=== PATIENT | male | born 2000 | race Two or more races ===

== ENCOUNTER 2022-12-22 01:25 | Emergency (ER) | payer OTHER ==
[~2022-12-22] VITALS: Ht 190.5 cm; Wt 91.0 kg
[2022-12-22 01:50] VITALS: BP 118/53; PULSE 83; RESP 18; O2SAT 97
[2022-12-22] MEDS ORDERED: FLUT1SPR5 (04:08)
[2022-12-22] MEDS ORDERED: AMOX500T3 PO (04:08)
== END 2022-12-22 07:25 | disposition home or self-care (01) ==
LOC: ER 01:25
DX: S00.03XA Contusion of scalp, initial encounter (principal); J32.9 Chronic sinusitis, unspecified; W22.8XXA Striking against or struck by other objects, initial encounter; Y93.89 Activity, other specified; Y92.89 Other specified places as the place of occurrence of the external cause; Y99.8 Other external cause status
CPT/HCPCS: 70450

== ENCOUNTER 2024-08-16 02:32 | Emergency (ER) | payer OTHER, MEDICAID ==
[~2024-08-16] VITALS: Ht 190.5 cm; Wt 102.2 kg
[~2024-08-16 02:32] MED LIST: AMOX500T3 PO; FLUT1SPR5
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
[2024-08-16 04:36] VITALS: BP 113/67; PULSE 89; RESP 18; TEMP 98.3; O2SAT 97
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
[2024-08-16] MEDS: HYDROcodone-ACET 5/325MG TAB PO ONE (05:48)
[2024-08-16] MEDS ORDERED: AUG875T PO (06:06)
[2024-08-16] MEDS ORDERED: IBUP-1456 PO (06:06)
== END 2024-08-16 06:11 | disposition home or self-care (01) ==
LOC: ER 02:41
DX: S02.2XXA Fracture of nasal bones, initial encounter for closed fracture (principal); Z79.899 Other long term (current) drug therapy; Y04.8XXA Assault by other bodily force, initial encounter; Y93.89 Activity, other specified; Y92.89 Other specified places as the place of occurrence of the external cause; Y99.8 Other external cause status
CPT/HCPCS: 70486